=== PATIENT | female | born 1940 ===

== ENCOUNTER 2016-10-24 10:27 | Inpatient (IN) | payer OTHER ==
[~2016-10-24] VITALS: Ht 160 cm; Wt 95.9 kg
--- NOTE | 2016-10-24 10:54 | NUR ---
76 YO FEAMLE TO ORTHO ROOM FOR EVAL OF VAGINAL BLEEDING THAT STARTED THIS AM.
--- NOTE | 2016-10-24 11:07 | NUR ---
EXAM BY DR. DOMINGUEZ, NO ACTIVE BLEEDING SEEN. IN VAGINA.
--- NOTE | 2016-10-24 11:50 | NUR ---
PATIENT RETURNED FROM CT SCAN. LABS DRAWN
[2016-10-24 11:57] LABS: microscopic required? YES
[2016-10-24 11:58] LABS: urine erythrocyte 3+ (NEGATIVE)
[2016-10-24 12:04] LABS: BASOPHIL % 0.5 % (0-2); PLATELET COUNT 300 x10^3mcL (130-400)
[2016-10-24 12:11] LABS: RED CELL DISTRIBUTION WIDTH 15.1 % (11.5-14.5)
[2016-10-24 12:12] LABS: CHLORIDE SERUM 104 mmol/L (98-107); CREATININE SERUM 1.2 mg/dL (0.6-1.0); GLUCOSE SERUM 90 mg/dL (74-106); POTASSIUM SERUM 4.5 mmol/L (3.5-5.1); SODIUM SERUM 135 mmol/L (136-145)
[2016-10-24 12:16] LABS: ALKALINE PHOSPHATASE 96 U/L (46-116); ALT/SGPT 34 U/L (14-59); AST/SGOT 48 U/L (15-37); BILIRUBIN TOTAL 0.21 mg/dL (0.20-1.00); TOTAL PROTEIN, SERUM 7.2 g/dL (6.4-8.2)
--- NOTE | 2016-10-24 12:24 | NUR ---
PATIENT RESTING COMFORTABLY. AWAITNG RESULTS.
[2016-10-24] MEDS ORDERED: LOSARTAN POTASS50 M1 (12:52)
[2016-10-24] MEDS ORDERED: ADALAT CC30 MG (12:52)
[2016-10-24] MEDS ORDERED: METOPROLOL TAR100 MG (12:52)
[2016-10-24] MEDS ORDERED: NEXIUM40 MG PO (12:53)
[2016-10-24] MEDS ORDERED: CELEXA20 MG PO (12:53)
[2016-10-24] MEDS ORDERED: BUSPIRONE HCL5 MG PO (12:53)
[2016-10-24] MEDS ORDERED: RESTORIL30 MG PO (12:54)
--- NOTE | 2016-10-24 13:34 | NUR ---
REPORT TO KACEY ETIENNE ASSUMING CARE. PATIENT REMAINS STABLE FOR TRANSFER.
--- NOTE | 2016-10-24 13:45 | NUR ---
REC'D PT FROM ER VIA [facility]CCA. PT IS AAOX4. TELE #24 SR WITH ELEVATED T-WAVE. LUNG SOUNDS CLEAR. NO SOB NOTED. PT STATED VAGINAL BLEEDING STARTED YESTERDAY. PT C/O 4/10 SUPRAPUBIC PAIN. DENIES BURNING OR DIFFICULTY URINATING. IV NOTED TO RH. INTACT AND PATENT. ORIENTED PT TO CALL LIGHT. BED IN LOWEST POSITION. WILL ENDORSE TO PRIMARY RN.
[2016-10-24 14:02] VITALS: BP 103/53
--- NOTE | 2016-10-24 14:20 | NUR ---
RECEIVED REPORT FROM TATIANA ETIENNE, ASSUMING PT CARE RESPONSABILITY
--- NOTE | 2016-10-24 15:06 | NUR ---
SPOKE WITH DR HATCH REG +UTI, WITH NO ATB, NEED FOR DIET ORDER, AND PT CONCERN ABOUT CONT HOME ATB. TO ROBIN PT.
[2016-10-24 15:07] LABS: T3 TOTAL 0.9 ng/mL
[2016-10-24 15:26] LABS: MAGNESIUM 2.1 mg/dL (1.8-2.4); PHOSPHOROUS 3.9 mg/dL (2.5-4.9)
[2016-10-24 15:27] LABS: CHOLESTEROL/HDL RATIO 2.5
--- NOTE | 2016-10-24 15:30 | NUR ---
DR. HATCH IN TO EVAL PT. PT MADE AWARE OBGYN CONSULT HAS BEEN ORDER AND AWAITING MD EVALUATION.
[2016-10-24 15:49] LABS: FREE T4 0.94 ng/dL (0.76-1.46); FREE THYROXINE INDEX 2.5 ug/dL (1.4-4.5); T4(THYROXINE) 6.8 ug/dL (4.7-13.3)
[2016-10-24 17:08] VITALS: BP 124/56
--- NOTE | 2016-10-24 18:50 | NUR ---
PT RESTING COMFRTABLY WITH FAMILY AT BEDSIDE. PT WITH ONGOING INFUSION OF ROCEPHIN NO ALLERGIC REACTION REPORTED AT THIS TIME. CALL LIGHT IN REACH NEEDS ATTENDED TO. AWAITING DR. MCGHEE CONSULT. DENIED ANY PAIN AND TRACE BLEEDING REPORTED.
--- NOTE | 2016-10-24 19:56 | NUR ---
AWAKE AND VERBALLY RESPONSIVE. ABLE TO MAKE NEEDS KNOWN. C/O SUPRAPUBIC PAIN ON SCALE 2/10. TOLERABLE AT THIS TIME. NO NEED FOR PAIN MEDICATION PER PT. FAMILY AT BEDSIDE VERY SUPPORTIVE CURRENT PATIEN'TS PLAN OF CARE. WILL CONTINUE TO MONITOR.
[2016-10-24 21:10] LABS: AMPHETAMINE QUAL UR NONE DETECTED (NEG <=1000)
[2016-10-24 21:44] VITALS: BP 117/55
--- NOTE | 2016-10-25 00:10 | NUR ---
ASLEEP SOUNDLY AFTER GIVINGTEMAZEPAM 30MG PO PER PT'S REQUEST. HR FROM 39-45/MIN. DR TONG MADE AWARE, CONTINUE TO MONITOR PATIENT CONDITION. PT EASILY AROUSABLE TO VERBAL STIMULI. PT STATED HR GOES DOWN TO 35=45/MIN WHENEVER SHE TAKES TEMAZEPAM.
[2016-10-25 01:50] VITALS: BP 122/55
[2016-10-25 06:03] VITALS: BP 115/50
--- NOTE | 2016-10-25 06:27 | NUR ---
MAINTAINED ON NPO EXCEPT MEDICATIONS FOR POSSIBLE PROCEDURE TODAY. ASSSISTED TO BATHROOM FOR PERSONAL NEEDS. NO VAGINAL BLEEDING NOTED THE WHOLE SHIFT. KEPT CLEAN AND DRY. ALL NEEDS ATTENDED.
[2016-10-25 06:28] LABS: BASOPHIL % 0.6 % (0-2); PLATELET COUNT 280 x10^3mcL (130-400)
[2016-10-25 06:43] LABS: RED CELL DISTRIBUTION WIDTH 15.3 % (11.5-14.5)
[2016-10-25 06:53] LABS: CALCIUM 8.3 mg/dL (8.5-10.1); CARBON DIOXIDE 25.4 mmol/L (21-32); CHLORIDE SERUM 107 mmol/L (98-107); CREATININE SERUM 1.1 mg/dL (0.6-1.0); GLUCOSE SERUM 92 mg/dL (74-106); POTASSIUM SERUM 4.1 mmol/L (3.5-5.1); SODIUM SERUM 137 mmol/L (136-145)
--- NOTE | 2016-10-25 07:20 | NUR ---
RECEIVED PT. IN BED A/A/O X4. NO SOB, NO N/V NOTED. DENIES ANY PAIN AT THIS TIME. PT. STATED SHE IS NOT HAVING ANY VAGINAL BLEEDING AT THIS TIME. NS RUNNING AT 70 CC/HR. VIA IV H/L AT R HAND. SCD TO BLE MAINTAINED. BED IN LOW POS., CALL LIGHT WITHIN REACH. SIDE RAILS UP X3.
[2016-10-25 08:50] VITALS: BP 122/54
--- NOTE | 2016-10-25 09:11 | NUR ---
DR. JJ, THE RESIDENTS, CHARGE NURSE, AND ATTENDING NURSE AT BEDSIDE. CAREPLAN DISCUSSED WITH PT. ALL QUESTIONS ANSWERED.
[2016-10-25 12:49] VITALS: BP 114/49
--- NOTE | 2016-10-25 16:28 | NUR ---
REMAINS IN STABLE CONDITION AT THIS TIME. NO ACUTE DISTRESS NOTED. DENIES ANY VAGINAL BLEEDING AT THIS TIME.
--- NOTE | 2016-10-25 17:45 | NUR ---
PT. IS BEING TAKEN TO O.R. FOR D&C.
--- NOTE | 2016-10-25 19:06 | NUR ---
PT. RETURNED TO ROOM FROM RECOVERY DEPT. (PT. IS S/P D & C TODAY). NO SOB, NO N/V NOTED. DENIES ANY PAIN AT THIS TIME. B/P= 125/61, P= 59, R.R.= 16, T= 97.8, O2 SAT.= 96% (RA). VAGINAL PAD IN PLACE. WILL CONTINUE TO MONITOR.
--- NOTE | 2016-10-25 19:50 | NUR ---
PT JUST CAME FROM OR S/P DILATATION AND CURRETAGE , AWAKE AND RESPONISVE TO VERBAL STIMULI. PT ASKING FOR FOOD, NPO SINCE MIDNIGHT ORDERED. DR NICOLAS MADE AWARE AND ORDERED CARDIAC DIET, NOTED AND CARRIED OUT. ABLE TO EAT SANDWICH AND TOLERATED WELL. NO S/S OF GLYCEMIC REACTION NOTED.
[2016-10-25 21:24] VITALS: BP 129/58
--- NOTE | 2016-10-26 01:06 | NUR ---
CONTINUES ON ATB IVPB FOR UTI WITHOUT ADVERSE REACTION NOTED. ORAL FLUIDS WELL TOLERATED. NO S/S OF ASPIRATION NOTED. DENIES ANY PAIN/DISCOMFORT AT THIS TIME.
[2016-10-26 04:52] VITALS: BP 108/47
--- NOTE | 2016-10-26 06:22 | NUR ---
DENIES ANY PAIN/DISCOMFORT. DUE MEDICATIONS GIVEN AND WELL TOLERATED. KEPT CLEAN AND DRY. ALL NEEDS ATTENDED.
[2016-10-26 07:32] LABS: BASOPHIL % 0.4 % (0-2); PLATELET COUNT 274 x10^3mcL (130-400)
--- NOTE | 2016-10-26 07:37 | NUR ---
PT RECEIVED FROM NIGHT NURSE IN NO ACUTE DISTRESS. RESPIRATIONS EVEN AND UNLABORED ON RA. PT ASLEEP IN BED. IVF INFUSING AT BEDSIDE. BED IN LOWEST POSITION. CALL LIGHT WITHIN REACH. WILL COTNINUE TO MONITOR.
[2016-10-26 07:41] LABS: RED CELL DISTRIBUTION WIDTH 14.9 % (11.5-14.5)
[2016-10-26 07:45] VITALS: BP 93/48
[2016-10-26 07:50] LABS: CALCIUM 8.2 mg/dL (8.5-10.1); CARBON DIOXIDE 26.4 mmol/L (21-32); CHLORIDE SERUM 108 mmol/L (98-107); GLUCOSE SERUM 84 mg/dL (74-106); PHOSPHOROUS 3.5 mg/dL (2.5-4.9); POTASSIUM SERUM 4.4 mmol/L (3.5-5.1); SODIUM SERUM 139 mmol/L (136-145)
[2016-10-26 09:10] VITALS: BP 100/45
[2016-10-26 11:48] VITALS: Ht 160 cm; Wt 95.9 kg
[2016-10-26 13:25] VITALS: BP 102/48
--- NOTE | 2016-10-26 13:41 | NUR ---
PT IS SITTING IN CHAIR IN NO ACUTE DISTRESS. RESPIRATIONS EVEN AND UNLABORED ON RA. FAMILY IS AT BEDSIDE. CALL LIGHT WITHIN REACH. WILL CONTINUE TO MONITOR.
[2016-10-26] MEDS ORDERED: LIPI20 PO (13:56)
[2016-10-26] MEDS ORDERED: ECO81 PO (13:57)
[2016-10-26] MEDS ORDERED: LEVAQUIN750 MG PO (14:00)
[2016-10-26] MEDS ORDERED: LAC PO (14:00)
--- NOTE | 2016-10-26 16:26 | NUR ---
PT DISCHARGED TO HOME IN NO ACUTE DISTRESS. AWAKE, ALERT, AND ORIENTED. VSS. AMBULATORY WITH CANE. DISCHARGE EDUCATION PROVIDED, PT AND DAUGHTER VERBALIZED UNDERSTANDING. INSTRUCTED PT AND FAMILY TO FOLLOW UP WITH PCP. IV DC'D INTACT. TELE REMOVED. BELONGINGS WITH PT. KACI ETIENNE ACCOMPANIED PT TO JOSE.
--- NOTE | 2016-10-26 16:30 | NUR ---
PT DISCHARGED TO HOME IN NO ACUTE DISTRESS. AAOX4. RESPIRATIONS EVEN AND UNLABORED ON RA. PT GIVEN DISCHARGE INSTRUCTIONS AND NEW PRESCRIPTIONS. PT INSTRUCTED TO FOLLOW UP WITH DR SANTANA. IV D/C INTACT. TELE REMOVED. PT ESCORTED TO DISCHARGE OFFICE VIA WHEELCHAIR, ACCOMPANIED BY KACI ETIENNE.
== END 2016-10-26 16:25 | disposition home or self-care (01) | DRG 744 ==
LOC: ED 10:27 → DU 13:09
PROVIDERS: Emergency Medicine; Obstetrics & Gynecology; ADMIT Family Medicine
PROC: 0UDB7ZZ Extraction of Endometrium, Via Natural or Artificial Opening (ICD-10-PCS; principal; 2016-10-25 17:30)
DX: N93.9 Abnormal uterine and vaginal bleeding, unspecified (principal); N17.0 Acute kidney failure with tubular necrosis; N39.0 Urinary tract infection, site not specified; D68.69 Other thrombophilia; E44.0 Moderate protein-calorie malnutrition; E87.1 Hypo-osmolality and hyponatremia; E11.51 Type 2 diabetes mellitus with diabetic peripheral angiopathy without gangrene; E11.65 Type 2 diabetes mellitus with hyperglycemia; R31.9 Hematuria, unspecified; E83.51 Hypocalcemia; F41.9 Anxiety disorder, unspecified; M71.22 Synovial cyst of popliteal space [Baker], left knee; K21.9 Gastro-esophageal reflux disease without esophagitis; M19.90 Unspecified osteoarthritis, unspecified site; I10 Essential (primary) hypertension; G47.00 Insomnia, unspecified; Z68.37 Body mass index [BMI] 37.0-37.9, adult
CPT/HCPCS: 82962; 83880; 84439; J0696; J2405; J2704; J3010; J7030; J7120; Q0092

== ENCOUNTER 2017-04-04 14:47 | Emergency (ER) | payer OTHER ==
[~2017-04-04] VITALS: Ht 160 cm; Wt 98.1 kg
[~2017-04-04 14:47] MED LIST: ADALAT CC30 MG; BUSPIRONE HCL5 MG PO; CELEXA20 MG PO; ECO81 PO; LAC PO; LEVAQUIN750 MG PO; LIPI20 PO; LOSARTAN POTASS50 M1; METOPROLOL TAR100 MG; NEXIUM40 MG PO; RESTORIL30 MG PO
[2017-04-04 14:53] VITALS: Ht 160 cm; Wt 98.1 kg
[2017-04-04 17:02] VITALS: BP 110/60
== END 2017-04-04 17:02 | disposition home or self-care (01) ==
LOC: ED 14:47
DX: H66.91 Otitis media, unspecified, right ear (principal); I10 Essential (primary) hypertension; M19.90 Unspecified osteoarthritis, unspecified site; Z88.0 Allergy status to penicillin; Z88.1 Allergy status to other antibiotic agents; Z88.5 Allergy status to narcotic agent